=== PATIENT | female | born 1970 | race Caucasian/White ===

== ENCOUNTER 2019-12-08 17:14 | Outpatient (REF) | payer MEDICAID, SELFPAY | END 2019-12-08 17:15 | disposition home or self-care (01) | LOC: HO.LAB 17:14 | PROVIDERS: Visit Provider Internal Medicine | DX: Z20.828 Contact with and (suspected) exposure to other viral communicable diseases (principal) | CPT/HCPCS: 87635 ==

== ENCOUNTER 2020-03-02 17:12 | Outpatient (REF) | payer MEDICAID, SELFPAY | END 2020-03-02 17:13 | disposition home or self-care (01) | LOC: HO.LAB 17:12 | PROVIDERS: Visit Provider Internal Medicine | DX: Z20.822 Contact with and (suspected) exposure to COVID-19 (principal) | CPT/HCPCS: 36415; C9803; U0003 ==